=== PATIENT | female | born 1995 | race Caucasian/White ===

== ENCOUNTER 2021-04-07 19:53 | Inpatient (IN) ==
[2021-04-06] MEDS: Betamethasone Acet/SodPhos 30 MG/5 ML VIAL IM SCH (17:23)
[2021-04-06 17:49] LABS: Basophils % 0.2 %; Eosinophils # 0.1 K/mcL (0.0-0.6); Eosinophils % 0.5 %; Hematocrit 30.3 % (35.3-44.9); Immature Granulocytes % 1.2 % (0-4); Lymphocytes # 3.1 K/mcL (0.6-4.6); Lymphocytes % 25.1 %; Mean Corpuscular HGB Conc 36.3 g/dL (31.6-35.5); Mean Corpuscular Hemoglobin 32.4 pg (28.0-33.3); Mean Corpuscular Volume 89.1 fL (83.0-100.0); Mean Platelet Volume 9.8 fL (9.4-12.4); Monocytes # 0.8 K/mcL (0.0-1.3); Monocytes % 6.7 %; Neutrophils # 8.3 K/mcL (1.6-8.9); Platelet Count 259 K/mcL (140-400); Red Cell Distribution Width 12.5 % (11.5-14.5); Segmented Neutrophils % 66.3 %; White Blood Count 12.5 K/mcL (4.3-11.1)
[2021-04-06] MEDS: Ringers Solution, Lactated 1,000 ML IVC SCH (18:58)
[2021-04-06 20:07] LABS: Bacteria,Urine Few per hpf (None-Few); Bilirubin,Urine Negative (Negative); Blood,Urine Negative (Negative); Clarity,Urine Turbid (Clear); Color,Urine Light-Yellow (Yellow); Glucose,Urine (UA) Normal (Normal); Ketones,Urine Negative (Negative); Leukocyte Esterase,Urine Large (Negative); Nitrite,Urine Negative (Negative); PH,Urine 6.5 pH Units (5.0-8.0); Protein,Urine Negative (Neg-Trace); RBC,Urine 0-3 per hpf (0-3); Specific Gravity,Urine 1.008 (1.010-1.025); Squamous Epithelial Cell,Urine Moderate per hpf (None-Few); Urobilinogen,Urine Normal (Normal)
[2021-04-06] MEDS: Penicillin G Potassium 2,500,000 UNIT in 0.9 % Sodium Chloride 100 ML IVPB SCH (23:00)
[2021-04-07] MEDS: Ondansetron 4 MG/2 ML VIAL IVP PRN ×3 (02:51→21:30)
[2021-04-07] MEDS: Penicillin G Potassium 2,500,000 UNIT in 0.9 % Sodium Chloride 100 ML IVPB SCH ×5 (02:51→21:25)
[2021-04-07] MEDS: Ringers Solution, Lactated 1,000 ML IVC SCH (12:13)
[2021-04-07] MEDS: Betamethasone Acet/SodPhos 30 MG/5 ML VIAL IM SCH (14:51)
[~2021-04-07 19:53] MED LIST: *HR* FentaNYL (PF) 100 MCG/2 ML VIAL EP ONE; *HR* FentaNYL (PF) 100 MCG/2 ML VIAL ONE; *HR* Nalbuphine 10 MG/ML AMPUL IV PRN; Acetaminophen 325 MG TABLET PO ONE; EPHEDrine 50 MG/ML VIAL IVP PRN; Epidural Premix (fent/bupiv) 110 ML EP SCH; NIFEdipine Immed Rel 10 MG CAPSULE PO ONE; Oxytocin 20 units/ LR 1000 mL 20 UNIT/1,000 ML BAG IVC SCH; Penicillin G Potassium 5,000,000 UNIT in 0.9 % Sodium Chloride Mini Bag 100 ML IVPB ONE; Ringers Solution, Lactated 500 ML IVC ONE; Ropivacaine/PF 0.2% 20 ML VIAL EP ONE
[2021-04-07] MEDS ORDERED: Famotidine 20 MG TABLET PO ONE (21:48)
[2021-04-07] MEDS ORDERED: Lidocaine/EPI 1:200k 2% PF 20 ML VIAL ONE (21:49)
[2021-04-07] MEDS ORDERED: Azithromycin 500 MG in 0.9 % Sodium Chloride 250 ML IVPB ONE (21:51)
[2021-04-07] MEDS ORDERED: Ondansetron 4 MG/2 ML VIAL ONE (21:51)
[2021-04-07] MEDS ORDERED: Metoclopramide 10 MG/2 ML VIAL IVP PRN (21:55)
[2021-04-07] MEDS ORDERED: Metoclopramide 10 MG/2 ML VIAL ONE (22:01)
[2021-04-07] MEDS ORDERED: *HR* Morphine Sulfate/PF 10 MG/10 ML AMPUL ONE (22:32)
[2021-04-07] MEDS ORDERED: *HR* HYDROmorphone PF 0.5 MG/0.5 ML SYRINGE IVP PRN (22:46)
[2021-04-07] MEDS ORDERED: Ondansetron 4 MG/2 ML VIAL IVP PRN (22:46)
[2021-04-07] MEDS ORDERED: Promethazine 6.25 MG in Water for inj. (sterile) 20 ML IVPB PRN (22:46)
[2021-04-07] MEDS ORDERED: Ketorolac 30 MG/ML VIAL ONE (22:54)
[2021-04-07] MEDS ORDERED: Acetaminophen IV 1,000 MG/100 ML BAG IVPB ONE (22:55)
[2021-04-08] MEDS ORDERED: CeFAZolin Syr 2,000MG/20 ML 2,000 MG/20 ML SYRINGE IVPB SCH (02:00)
[2021-04-08] MEDS ORDERED: Oxytocin 20 units/ LR 1000 mL 20 UNIT/1,000 ML BAG IVC SCH (02:09)
[2021-04-08] MEDS ORDERED: Simethicone 80 MG TAB.CHEW PO PRN (02:09)
[2021-04-08] MEDS ORDERED: Metoclopramide 10 MG/2 ML VIAL IVP PRN (02:09)
[2021-04-08] MEDS ORDERED: *HR* OxyCODONE Immed Rel 5 MG TABLET PO PRN (02:09)
[2021-04-08] MEDS: CeFAZolin 2,000 MG/120 ML BAG IVPB SCH ×3 (04:06→18:16)
[2021-04-08 05:05] LABS: Basophils % 0.1 %; Hematocrit 26.6 % (35.3-44.9); Hemoglobin 9.5 g/dL (11.5-15.4); Immature Granulocytes % 1.6 % (0-4); Lymphocytes # 1.5 K/mcL (0.6-4.6); Lymphocytes % 8.2 %; Mean Corpuscular HGB Conc 35.7 g/dL (31.6-35.5); Mean Corpuscular Hemoglobin 32.4 pg (28.0-33.3); Mean Corpuscular Volume 90.8 fL (83.0-100.0); Mean Platelet Volume 10.3 fL (9.4-12.4); Monocytes # 0.8 K/mcL (0.0-1.3); Monocytes % 4.5 %; Platelet Count 264 K/mcL (140-400); Red Blood Count 2.93 M/mcL (3.82-4.97); Red Cell Distribution Width 12.8 % (11.5-14.5); Segmented Neutrophils % 85.6 %; White Blood Count 18.6 K/mcL (4.3-11.1)
[2021-04-08] MEDS: Acetaminophen 325 MG TABLET PO SCH ×3 (08:12→20:20)
[2021-04-08] MEDS: Ibuprofen 600 MG TABLET PO SCH ×3 (08:13→20:20)
[2021-04-08] MEDS: metroNIDAZOLE 500 MG TABLET PO SCH ×3 (08:13→20:20)
[2021-04-08] MEDS: Ondansetron 4 MG/2 ML VIAL IVP PRN ×2 (08:17→20:21)
[2021-04-08] MEDS ORDERED: Prenatal Vit/FA 1 EACH TABLET PO SCH (09:00)
[2021-04-08] MEDS ORDERED: NON-FORMULARY MEDICATION 1 EACH EACH (Prenat 115/Iron Fum/Folic/Dss [Prenatal 19 Tablet] 1 PO SCH (09:00)
[2021-04-08] MEDS ORDERED: Ringers Solution, Lactated 500 ML ONE (17:40)
[2021-04-08] MEDS ORDERED: Lanolin 7 G OINT...G. TP PRN (20:35)
[2021-04-08 21:37] VITALS: TEMP 98.2; O2SAT 99
[2021-04-09 00:49] VITALS: BP 109/71; PULSE 79
[2021-04-09] MEDS: Ibuprofen 600 MG TABLET PO SCH ×2 (03:05→09:05)
[2021-04-09] MEDS: Acetaminophen 325 MG TABLET PO SCH ×2 (03:05→09:05)
[2021-04-09] MEDS: metroNIDAZOLE 500 MG TABLET PO SCH (09:06)
== END 2021-04-09 11:59 | disposition home or self-care (01) | DRG 786 ==
LOC: 1NENULAB → 1NENUOBS 04-08 02:10
PROVIDERS: ADMIT Obstetrics & Gynecology; ATTEND Obstetrics & Gynecology